=== PATIENT | female | born 1990 | race Caucasian/White ===

== ENCOUNTER 2019-01-09 06:32 | Inpatient (IN) | payer OTHER ==
[2019-01-09] VITALS (16 sets, daily range): BP systolic 93–125; BP diastolic 53–86
[~2019-01-09] VITALS: Ht 165.1 cm; Wt 51.3 kg
[~2019-01-09 06:32] MED LIST: ADDERAL20 MG ORAL; NORCO 5-325 TA1 EACH ORAL; SOMA350 MG PO
[2019-01-09] MEDS ORDERED: Zemuron 50mg/5ml Inj IV ONE (06:35)
[2019-01-09] MEDS ORDERED: LR 1000ml 1,000 ML IVLG SCH (06:51)
[2019-01-09] MEDS ORDERED: Sodium Chloride 10ml vial INJ ONE (06:53)
[2019-01-09] MEDS ORDERED: Lidocaine 1% MPF 10mg/ml 5ml ONE (06:53)
[2019-01-09] MEDS ORDERED: Dexamethasone 4mg/ml vial ONE (06:53)
--- NOTE | 2019-01-09 06:53 | Immediate Post-Op Evaluation ---
Immediate Post-Op Evalulation Immediate Post-Op Evalulation Procedure: L L5-S1 Hemilaminectomy, Microdiscectomy Date of Evaluation: Jan 09, 2019 Time of Evaluation: 09:55 IV Fluids: 500 LR Blood Products: 0 Estimated Blood Loss: 5 Urinary Output: 0 Blood Pressure Systolic: 119 Blood Pressure Diastolic: 82 Pulse Rate: 113 Respiratory Rate: 16 O2 Sat by Pulse Oximetry: 99 Temperature (Fahrenheit): 97.5 Pain Score (1-10): 2 Nausea: No Vomiting: No Complications 0 Patient Status: awake, reacts, patent, extubated, none Hydration Status: adequate Dru Grams Ancef IV Given Within 1 Hr of Incision: Yes Time Given: 08:06 Kosta Fischer MD Jan 09, 2019 06:53
[2019-01-09] MEDS ORDERED: Lidocaine 1% Plain 30 ml INJ ONE (06:54)
[2019-01-09] MEDS ORDERED: oxyCODONE HCL/Acetaminophen 5/325mg ORAL PRN (07:00)
[2019-01-09] MEDS ORDERED: Hydromorphone 0.5mg/0.5ml inj IVP PRN ×2 (07:00→12:15)
[2019-01-09] MEDS ORDERED: HYDROcodone/Acetamin 7.5/325 tab ORAL PRN (07:00)
[2019-01-09] MEDS ORDERED: fentaNYL 100 mcg/2 mL IV PRN (07:00)
[2019-01-09] MEDS ORDERED: Midazolam 2mg/2ml Inj IVP PRN (07:00)
[2019-01-09] MEDS ORDERED: Metoclopramide 10mg/2ml Inj IVP PRN ×2 (07:00→09:45)
[2019-01-09] MEDS ORDERED: DiphenhydrAMINE 50mg/ml Inj IVP PRN (07:00)
[2019-01-09] MEDS ORDERED: Ketorolac 30mg Inj IV PRN ×2 (07:00)
[2019-01-09] MEDS ORDERED: Norco 5mg/325mg tab ORAL PRN (07:00)
[2019-01-09] MEDS ORDERED: Meperidine 50mg/ml Inj(FOR RIGORS ONLY) IVP PRN (07:00)
[2019-01-09] MEDS ORDERED: LORazepam Inj 2mg/ml 1ml IV PRN (07:00)
[2019-01-09] MEDS ORDERED: Acetaminophen (Non formulary) 100 ML IV ONE (07:00)
[2019-01-09] MEDS ORDERED: Atropine Sulfate 0.4mg/ml inj IVP PRN (07:00)
[2019-01-09] MEDS ORDERED: Vancomycin 1gm vial IVPB ONE (07:11)
[2019-01-09] MEDS ORDERED: Thrombin 5000 units TOPIC ONE (07:11)
[2019-01-09] MEDS ORDERED: Gelfoam Size TOPIC ONE (07:11)
[2019-01-09] MEDS ORDERED: Bupivacaine w/Epi 0.5% 30ml Vial INJ ONE (07:12)
[2019-01-09] MEDS ORDERED: Bacitracin 50000 Units Vial ONE (07:12)
--- NOTE | 2019-01-09 07:51 | Anethesia Preoperative Eval ---
Anesthesia Pre-op PMH/ROS General Date of Evaluation: Jan 09, 2019 Time of Evaluation: 07:51 Anesthesiologist: Aaliyah ASA Score: ASA 1 Mallampati Score Class I : Soft palate, uvula, fauces, pillars visible Class II: Soft palate, uvula, fauces visible Class III: Soft palate, base of uvula visible Class IV: Only hard plate visible Mallampati Classification: Class I Surgeon: Jagruti Diagnosis: Back Pain Surgical Procedure: L L5-S1 Hemilaminectomy, Microdiscectomy Anesthesia History: none Family History: no anesthesia problems Allergies: Coded Allergies: No Known Allergies (Unverified , 01/09/19) Medications: see eMAR Patient NPO?: Yes NPO Date: Jan 08, 2019 NPO Time: 2029 Past Medical History PSxH Narrative: Lap cyst Removal Anesthesia Pre-op Phys. Exam Physician Exam Last Vital Signs Date Time Temp Pulse Resp B/P (MAP) Pulse Ox O2 Delivery O2 Flow Rate FiO2 01/09/19 07:22 Room Air 01/09/19 07:01 98.0 61 18 115/76 (89) 100 Constitutional: NAD Neurologic: CN 2-12 intact Cardiovascular: RRR Respiratory: CTA Gastrointestinal: S/NT/ND Airway Exam Mallampati Score: Class I MO: full ROM: full Teeth: intact Anesthesia Pre-op A/P Labs Urine Test Test 01/09/19 06:40 Urine HCG, Qualitative Negative (NEGATIVE) Risk Assessment & Plan Assessment: ASA 1 Plan: GA, SED, GlideScope Go Status Change Before Surgery: No Pre-Antibiotics Dru Grams Ancef IV Given Within 1 Hr of Incision: Yes Time Given: 08:06 Kosta Fischer MD Jan 09, 2019 07:51
[2019-01-09] MEDS ORDERED: Sterile Water Irrig 1000ml IRRIG ONE (08:00)
[2019-01-09] MEDS ORDERED: NS Irrig 1000ml ONE (08:00)
[2019-01-09] MEDS ORDERED: Propofol 1,000mg/ 100ml btl IV ONE (08:00)
[2019-01-09] MEDS ORDERED: LR 1000ml ONE (08:00)
--- NOTE | 2019-01-09 08:14 | Pre-Procedure Note/Attestation ---
Pre-Procedure Note/Attestation Complete Prior to Procedure Procedure Narrative: L L5S1 laminectomy/discectomy Indications for Procedure Pre-Operative Diagnosis: HNP l5S1 Attestation I attest that I discussed the nature of the procedure; its benefits; risks and complications; and alternatives (and the risks and benefits of such alternatives ), prior to the procedure, with the patient (or the patient's legal sales and service representative). I attest that, if there was a reasonable possibility of needing a blood transfusion, the patient (or the patient's legal sales and service representative) was given the [facility] standardized written summary, pursuant to the Leobardo Adonis Blood Safety Act ([place] Health and Safety Code # 1645, as amended). I attest that I re-evaluated the patient just prior to the surgery and that there has been no change in the patient's H&P, except as documented below: Jayden Chand MD Jan 09, 2019 08:14
--- NOTE | 2019-01-09 08:15 | Brief Operative Note ---
Immediate Post Operative Note Operative Note Pre-op Diagnosis: HNP l5S1 Procedure: L l5S1 laminectomy/discectomy Post-op Diagnosis: same as pre-op Findings: consistent w/pre-op dx studies Surgeon: stacey Carpenter Railcar: mayito Anesthesiologist: Demetris Anesthesia: general Specimen: yes Complications: none Condition: stable Fluids: 500 Estimated Blood Loss: none Drains: none Implant(s) used?: No Jayden Chand MD Jan 09, 2019 08:15
[2019-01-09] MEDS ORDERED: Neostigmine 1mg/ml 10ml Inj ONE (08:40)
[2019-01-09] MEDS ORDERED: Glycopyrrolate 0.2mg/ml 1ml Vial ONE (08:40)
[2019-01-09] MEDS ORDERED: Naloxone 0.4mg/ml Inj ONE (09:21)
[2019-01-09] MEDS ORDERED: Milk of Magnesia 30ml Ud ORAL PRN (09:45)
--- NOTE | 2019-01-09 11:40 | NUR ---
NURSE NOTES: Joselin RN brought patient by bed in stable condition. Alert and oriented x4. Complain of mild pain on surgical site and will continue to monitor. Ice pack applied on surgical site. IV dressing intact and dry. No bleeding or swelling on IV site. Belonging checked with patient. Bed lowest position. Call light within reach. Will continue to monitor.
[2019-01-09] MEDS ORDERED: HYDROcodone/Acetamin 10/325 tab ORAL PRN (12:15)
--- NOTE | 2019-01-09 12:15 | NUR ---
NURSE NOTES: Spoke to regarding pain medication. New order received. Order read back and carried out.
--- NOTE | 2019-01-09 12:18 | Diagnostic Imaging Report ---
INDICATION: Pain, intraoperative TECHNIQUE: Intraoperative imaging Fluoroscopy time: 2.2 seconds Total dose: [id number] mGym2 Total number of images: One COMPARISON: None FINDINGS: Surgical tool projects posterior to what is presumably the L5-S1 disc IMPRESSION: Intraoperative imaging, as described
[2019-01-09] MEDS: D5 1/2NS 1,000 ML IV SCH ×2 (12:30→22:13)
--- NOTE | 2019-01-09 12:30 | NUR ---
NURSE NOTES: Patient ambulated to bathroom with assist. No complain of discomfort or dizziness. Patient tolerated activity well. Will continue to monitor.
[2019-01-09] MEDS: HYDROmorphone 1mg/ml Carpuject SUBQ PRN ×2 (12:31→15:33)
--- NOTE | 2019-01-09 12:57 | NUR ---
CASE MANAGEMENT:REVIEW 01/09/19 28 YR OLD FEMALE HERE FOR ELECTIVE SURGERY SI: LUMBAR SPRAIN 98.0 61 18 115/76 100% ON RA IS: TO SURGERY: L5 S1 LAMINECTOMY/DISCECTOMY IV ANCEF Q8 IVF@100/HR IV DILAUDID Q2RHS PRN : TO MED/SURG 3 EAST POST OP INTERQUAL CRITERIA MET
--- NOTE | 2019-01-09 13:48 | NUR ---
REHAB MED PT NOTE CONSULT RECEIVED, JUAN COMPLTED, PATIENT WILL BENEFIT FROM SKILLED PT DURING STAY FOR RETURN TO OF. SPINAL PRECAUTIONS REVIEWED. LOG ROLL SHOWN. WILL CONTINUE TO FOLLOW. RECOMMEND HOME AT LA. PLAN OF CARE INITIATED. TAYLER SANCHEZ PT DPT Addendum: 01/09/19 at 1350 by TAYLER SANCHEZ PT Amended: Links added.
[2019-01-09] MEDS: ceFAZolin sod 1 GM in D5W 55 ML IV SCH ×2 (15:32→23:10)
[2019-01-09] MEDS ORDERED: Dronabinol 2.5mg Cap ORAL SCH (17:00)
--- NOTE | 2019-01-09 17:00 | NUR ---
NURSE NOTES: Patient complained Dilaudid not effective for pain. Notified regarding pain management and new order received. Order read back and carried out.
--- NOTE | 2019-01-09 17:15 | Operative Note - Dictated ---
DATE OF OPERATION: 01/09/2019 SURGEON: Jayden Chand M.D. PREOPERATIVE DIAGNOSIS: Disk herniation, L5-S1 left side with radiculopathy. POSTOPERATIVE DIAGNOSIS: Disk herniation, L5-S1 left side with radiculopathy. PROCEDURE: 1. Left-sided hemilaminectomy and microscopic diskectomy. 2. Partial medial facetectomy, left side. 3. Use of operating microscope. 4. Neurodiagnostic monitoring. 5. Lysis of adhesions adjacent to nerve roots at left L5. ESTIMATED BLOOD LOSS: Minimal. FLUIDS: 500 mL. COMPLICATIONS: None. INDICATIONS: The patient is a very pleasant 28-year-old with approximately 5 or 6 months of back pain with radiation to left lower extremity, this persisted despite extended physical therapy, core strengthening, epidural injections, and other conservative care. Surgical intervention was recommended. RISK NOTE: The patient was explained in detail the risks and benefits of surgery to include, but not be limited to those of bleeding; infection; damage to nerves, vessels, tendons; anesthetic risk, allergic reaction; aspiration; and possibly . The patient understood and wished to proceed. Possible risk for need for spinal fusion was discussed. The patient understood intraoperative findings once incising the disk, fluid consistent with inflammatory tissue exude from the subligamentous region. OPERATIVE PROCEDURE IN DETAIL: The patient was taken to the operative suite. After general endotracheal anesthesia was obtained, she was turned prone onto a radiolucent table with a Pardeep frame. Back was prepped and draped in usual sterile fashion. The needles were placed at what was felt to be the L4-L5 and L5-S1 level and this was radiographically confirmed. At this point, back was prepped and draped in usual sterile fashion. Marcaine with epinephrine was injected at the L5 level. Incision was carried out at L5. Subperiosteal dissection was carried out at left side, L5-S1. Self-retaining retractor was put into place. High-speed drill was then used under microscopic visualization to remove and thin out the lamina of L5 on the left side. Christiano Gonzalez completed the left-sided hemilaminectomy with exposure of the facet joints. Minimal facetectomy was performed. Ligamentum flavum was removed in a piecemeal fashion. S1 nerve root was identified, gently retracted medially. Extensive scarring in this area was noted. The rotund microscopic instruments were then used to perform a lysis of epidural neovascularization and scar tissue formation. Once the adhesions were lifted, the L5-S1 disk on the left was identified. Nerve root retractor was used to reflect the S1 nerve medially. The 15 scalpel was used to incise the disk. Once the disk was incised, clear fluid was expressed, consistent with acute inflammatory markers. At this point, the incision was carried down and down pushing curette was used to debulk the disk herniation. Multiple passes with the straight and angled pituitaries allowed for thorough diskectomy. Copious intradiscal irrigation was performed. Once satisfied with the diskectomy, the neural foramen at L5-S1 was probed and noted to be patent. S1 nerve root was noted to be patent. Copious irrigation once again performed. FloSeal was applied. Decision was made to close. Fascia was repaired using #1 Vicryl, subcutaneous closure using 2-0 Vicryl. Dermabond and sterile dressing was applied. The patient was extubated and transferred to recovery room in stable condition. Jayden Chand M.D. DR: MICHAEL JOB#: [id number] CC:
[2019-01-09] MEDS: Docusate Sod/Senna tab ORAL SCH ×2 (17:35→18:27)
--- NOTE | 2019-01-09 18:06 | Cardiology Progress Note ---
Assessment/Plan Assessment/Plan [id number] ns 250 cc bolus bp not sig different than baseline Objective Last 24 Hour Vital Signs Date Time Temp Pulse Resp B/P (MAP) Pulse Ox O2 Delivery O2 Flow Rate FiO2 01/09/19 16:00 98.6 61 18 93/55 (68) 99 01/09/19 12:45 98.0 84 18 103/75 (84) 99 01/09/19 12:15 98.1 69 18 100/69 (79) 98 01/09/19 11:45 97.5 67 18 100/70 (80) 100 01/09/19 11:05 97.8 69 18 102/76 100 Nasal Cannula 3 01/09/19 10:56 58 18 114/61 100 Nasal Cannula 3 01/09/19 10:50 97.5 01/09/19 10:49 56 18 124/86 100 Nasal Cannula 3 01/09/19 10:41 58 18 124/86 100 Nasal Cannula 3 01/09/19 10:30 62 18 113/74 100 Nasal Cannula 3 01/09/19 10:11 76 18 124/86 100 Nasal Cannula 3 01/09/19 10:00 79 18 125/85 100 Simple Mask 8 01/09/19 09:54 89 18 117/83 100 Simple Mask 8 01/09/19 09:49 86 18 122/84 100 Simple Mask 8 01/09/19 09:44 97.5 113 18 121/76 100 Simple Mask 8 01/09/19 09:42 113 16 99 01/09/19 07:22 Room Air 01/09/19 07:01 98.0 61 18 115/76 (89) 100 Intake and Output 01/08/19 01/09/19 19:00 07:00 # Voids 1 Laboratory Tests Test 01/09/19 06:40 Urine HCG, Qualitative Negative (NEGATIVE) Christopher Beauchamp MD Jan 09, 2019 18:06
[2019-01-09] MEDS ORDERED: NS 250 ML IVPB ONE (18:15)
--- NOTE | 2019-01-09 18:15 | NUR ---
NURSE NOTES: Spoke to regarding blood pressure. New order received. Order read back and carried out.
[2019-01-09] MEDS ORDERED: HYDROmorphone 1mg/ml Carpuject SUBQ PRN (19:32)
[2019-01-09] MEDS ORDERED: HYDROmorphone 1mg/ml Carpuject SUBQ SCH (19:32)
--- NOTE | 2019-01-09 19:45 | NUR ---
HAND-OFF: Report given to Yelena BOYCE. Patient in stable condition.
--- NOTE | 2019-01-09 19:46 | NUR ---
NURSE NOTES: Received report & pt from Jefferson Bethea RN. Pt lying in bed, a&ox4, in room air, family members at bedside. No s/s of acute distress & c/o 8/10 pain. Will give PRN pain med when available & pt verbalized understanding. Dr. Zhang is also here to see pt with new orders for pain meds--to give Dilaudid 1.5mg SubQ @ 2000, Marinol @ 2100, Ativan @ 2200, Dilaudid SubQ or oxycodone @ 2300, Oxycodone or Dilaudid SubQ @ 0000, & after midnight to rotate PRN pain meds (one hour apart). Pt & family member aware of med regimen. Surgical dressing C/D/I. IV site intact with IVF running as ordered. Bed in lowest position, call light within reach. Will continue to monitor.
--- NOTE | 2019-01-09 20:40 | NUR ---
NURSE NOTES: Pt ambulating in hallway with assistance. Steady gait & in no distress.
[2019-01-09] MEDS: Dronabinol 2.5mg Cap ORAL SCH (21:12)
[2019-01-09] MEDS: LORazepam 1mg tab ORAL PRN (22:13)
--- NOTE | 2019-01-09 23:00 | Consultation ---
DATE OF CONSULTATION: 01/09/2019 CARDIOLOGY CONSULTATION CONSULTING PHYSICIAN: Christopher Beauchamp M.D. REFERRING PHYSICIAN: Jayden Chand M.D. REASON FOR REFERRAL: Postoperative medical care. HISTORY OF PRESENT ILLNESS: This is a 28-year-old female, who has undergone back surgery by Dr. Chand. I have been asked to see her in for medical consultation. The patient really does not have much in terms of symptoms except for the fact that she has postoperative pain. She does have some sore throat. On questioning, she is not nauseated and has not been vomiting and she has eaten already some tuna sandwich. She does not have any chest pain or pressure. No PND. No orthopnea. No palpitations. No dizziness or lightheadedness. PAST MEDICAL HISTORY: Positive for basically injury. It also showed that she has had surgery the last year. Since she has had surgery, she has had several cysts removed and laparoscopies in the past few years. SOCIAL HISTORY: She does smoke tobacco and marijuana. No IV drugs. No alcohol use. FAMILY HISTORY: Father . Mother is 50 years old. One sister healthy. There is a family history of diabetes and high blood pressure. ALLERGIES: She has no known drug allergies. REVIEW OF SYSTEMS: GASTROINTESTINAL: No nausea, vomiting, or diarrhea. She is really not having a bowel movement. She has full soft daytime. CONSTITUTIONAL: No fever, chills, or night sweats. PULMONARY: No coughing, wheezing, or shortness of breath. NEUROLOGICAL: She does have numbness and tingling sensation that she seems to have had since prior to surgery in her left leg that is present at this time as well. CARDIAC: No pain, pressure, tightness, heaviness, PND, or orthopnea. PHYSICAL EXAMINATION: GENERAL: Shows to be a young female, in no respiratory distress. NECK: Supple. No jugular venous distention. LUNGS: Appear to be clear to auscultation and percussion. CARDIAC: S1 is normal. S2 is normal. Regular rate and rhythm. No heaves or thrills noted. ABDOMEN: Soft and nontender. Positive bowel sounds. EXTREMITIES: She has pneumatic compression stockings in place. Good pulses. There is no edema distally. LABORATORY VALUES AND IMAGING DATA: Her beta-hCG was negative in hospital. However, her labs, INR 1.1. Sodium 137, potassium 3.7, chloride 106, bicarb 25, BUN of 9, creatinine 0.8, and glucose of 83. Liver function tests are normal. White count 5.2, hemoglobin 12.5, and platelet count of 186,000. CPK of 58. Phosphorus of 2.1. Magnesium 1.8. Iron level of 118. TSH of 1.1. Free T4 and T3 were all normal. Cortisol of 8.35. The patient has hs-CRP of 0.24. Sed rate of 4. She did have chest x-rays, which showed normal sinus rhythm, normal QRS axis, really no significant ST-T wave abnormalities. ASSESSMENT: 1. Lumbar sprain and strain with disk desiccation. 2. Hypotension. 3. Tobacco use disorder. 4. Paresthesias in left leg. PLAN: This patient was seen in cardiac consultation. The patient appears to be doing relatively well. Her blood pressure most recently checked, 92/55. She runs in the low 100s, so not significantly different than her baseline. She is afebrile. She has already eaten. She has had DVT prophylaxis with the use of pneumatic compression stockings and early ambulation as possible per recommendations of Ortho. Incentive spirometer discussed with the patient and the patient will be followed in the hospital. Once she is able to walk and move around and be able to eat and have adequate bowel movements, she will be discharged home. Her blood pressure being mildly lower than baseline, so problem with normal suck consequence. So, if she needs, IV fluids can be administered to help with that. She would not get her Adderall while she is in the hospital. Stool softeners were recommended for the patient to be continuing. Christopher Beauchamp M.D. DR: BRANDON JOB#: [id number] CC:
[2019-01-09] MEDS: oxyCODONE 5mg IR tab ORAL PRN (23:10)
--- NOTE | 2019-01-09 23:15 | Consultation ---
DATE OF CONSULTATION: 01/09/2019 CONSULTING PHYSICIAN: Clifford Zhang M.D. REFERRING PHYSICIAN: aJyden Chand M.D. REASON FOR CONSULTATION: Acute pain consult. HISTORY OF PRESENT ILLNESS: Thank you kindly for consulting me to evaluate and render an opinion as to how to proceed in the management of the patient's acute postoperative lumbar spine pain after a lumbar spine surgery today. The patient is a 28-year-old woman, who injured her lumbar spine in a work-related injury. She underwent lumbar spine decompressive surgery today, and complained of excruciating postoperative pain. She was trialed on multiple doses of high dose Dilaudid, but still stated that her pain control was inadequate. You consulted me to help with her pain control. I saw the patient at the bedside with her boyfriend. I discussed the case with the hospital pharmacist along with the nursing team to devise the following analgesic plan. PAST MEDICAL HISTORY: 1. Acute postoperative lumbar spine pain, status post lumbar spine surgery by in December 2018. 2. Work-related injury. 3. Active tobacco usage. 4. History of endometriosis. 5. Attention deficit hyperactivity disorder. 6. Chronic elbow pain. PAST SURGICAL HISTORY: Gynecological surgery in 2008, 2009, and 2011. MEDICATIONS AT HOME: [place], [place], NSAIDs, and Adderall. ALLERGIES: No known drug allergies. FAMILY HISTORY: Diabetes and hypertension. SOCIAL HISTORY: The patient is accompanied at the bedside by her boyfriend. She actively smokes tobacco. She smokes medical marijuana every night for pain control. REVIEW OF SYSTEMS: Per Dr. Janes Martínez. PHYSICAL EXAMINATION: VITAL SIGNS: Age 28. Height 5 feet 5 inches and weight 114 pounds. Body mass index 19. VITAL SIGNS: Pain level 9/10 on the visual analog pain scale. Afebrile, pulse 61, respirations 18, blood pressure 103/75, and oxygen saturation 99% on room air. HEENT: Normocephalic and atraumatic. Eye glasses. No Paula's palsy. No Laureen syndrome. Extraocular muscles intact. CHEST: Clear to auscultation. BACK: Lumbar spines shows a dry dressing. Painful by incision area with minimal paraspinal muscle spasms appreciated. EXTREMITIES: Moving all extremities x4 with 5/5 dorsiflexion and 5/5 plantar flexion in bilateral lower extremities. NEUROLOGIC: Detailed neurologic exam per Dr. Chand. BREASTS/GENITOURINARY: Deferred. LABORATORY AND DIAGNOSTIC DATA: Laboratory studies from December 2018, PTT 31, INR 1.1, glucose 83, sodium 137, potassium 3.7, chloride 106, bicarb 25, BUN 9, and creatinine 0.9. Total protein 6.7. Albumin 4.2. AST 14 and ALT 10. Total bilirubin 0.5. White count 5, hematocrit 35, and platelets 186,000. A 12-lead EKG normal on 01/08/2019. Pulmonary function testing on 01/06/2019 normal. MRI of the lumbar spine dated September 2018, L5-S1 with a 5 mm left paracentral and left lateral disc protrusion. IMPRESSION: 1. Acute postoperative lumbar spine pain, status post lumbar spine surgery by in December 2018. 2. Work-related injury. 3. Active tobacco usage. 4. History of endometriosis. 5. Attention deficit hyperactivity disorder. 6. Chronic elbow pain. TREATMENT RECOMMENDATIONS: I will apply the nicotine patch to help with the nicotine withdrawal agitation, which is exacerbating her pain complaints. Because she does smoke medical marijuana each night for pain control, I have placed her on q.12 hours dosing of oral Marinol to help for better baseline analgesia. She does state that she has used Xanax and Ativan in the past for anxiolysis. I have ordered Ativan 1 mg orally every 4 hours p.r.n. as an antispasm and antianxiety agent. The patient states that with her history of endometriosis and previous gynecological surgeries, she has tolerated Percocet in the past. I believe oxycodone is a more potent agent in this case. I will discontinue previous orders for [place]. I also have discontinued previous any other muscle relaxants to simplify her analgesic plan. I recommend using breakthrough doses of Dilaudid. I have increased the dose to 1.5 mg subcutaneously every three hours pain for severe breakthrough pain. I would alternate this with oxycodone instant release 15 mg orally every three hours p.r.n. for moderate pain along with the p.r.n. Ativan in combination with the scheduled Marinol. Hopefully, this combination will moderate her pain complaints. I have instructed the nursing and pharmacy teams to wait at least 60 minutes between any doses of narcotics or sedating agent, to avoid respiratory depression. I have ordered incentive spirometer to encourage good pulmonary toilet. I will place the patient on GI ulcer prophylaxis with b.i.d. Pepcid, along with a p.r.n. dose of Mylanta in case of any GERD symptom exacerbation. I have ordered Zofran and Phenergan as a rescue antiemetic. I have ordered Benadryl 25 mg orally q.6 hours in case of any itching complaints. Clifford Zhang M.D. DR: BECKY JOB#: [id number] CC:
[2019-01-10] VITALS (10 sets, daily range): BP systolic 81–101; BP diastolic 44–68
[2019-01-10] MEDS: LORazepam 1mg tab ORAL PRN ×2 (03:42→17:42)
--- NOTE | 2019-01-10 04:05 | NUR ---
NURSE NOTES: Pt's BP decreased. Checked BP 3 times. 1st: 75/37, 2nd:75/37, & 3rd: 81/45. Called Dr. Beauchamp regarding decreased BP & got a new order for NS Bolus 250cc @ 100ml/hr. Charge nurse Edilson also aware. Will continue to monitor pt's BP.
[2019-01-10] MEDS ORDERED: NS 250 ML IVPB ONE (04:15)
--- NOTE | 2019-01-10 06:30 | NUR ---
NURSE NOTES: BP rechecked 90/49, HR 81.
--- NOTE | 2019-01-10 07:06 | 48 Hour Post Anesthesia Eval ---
Post Anesthesia Evaluation Procedure: L L5-S1 Hemilaminectomy, Microdiscectomy Date of Evaluation: Jan 10, 2019 Time of Evaluation: 06:31 Blood Pressure Systolic: 90 0: 41 Pulse Rate: 80 Respiratory Rate: 17 Temperature (Fahrenheit): 98.1 O2 Sat by Pulse Oximetry: 97 Airway: patent Nausea: No Vomiting: No Pain Intensity: 2 Hydration Status: adequate Cardiopulmonary Status: Stable Mental Status/LOC: patient returned to baseline Follow-up Care/Observations: 0 Post-Anesthesia Complications: 0 Follow-up care needed: N/A Kosta Fischer MD Jan 10, 2019 07:06
--- NOTE | 2019-01-10 07:30 | NUR ---
HAND-OFF: Report given to CARLI Montes. Called Dr. Zhang regarding pt's current BP 90/49 & pt's pain level at 9/10 & asking for pain med that's due. Dr. Zhang recommended to give roxicodone despite pt's current BP with no parameters given. Per MD, "Don't be concerned about the BP. Just give the neeta". Endorsed to AM shift & AM charge nurse Sudheere also aware.
--- NOTE | 2019-01-10 08:00 | NUR ---
NURSE NOTES: Received report from Yelena BOYCE. During rounds patient is awake alert and oriented, no acute distress noted. Dressing assessed c/d/i. Patient is reporting pain 9/10 in back. Placed iced and repositioned for comfort, will medicate as ordered. Per report from Yelena BOYCE, Dr. Zhang is aware of patient's blood pressure running low but stated ok to give roxicodone. Patient reports that she became lightheaded this morning and almost fell while leaving bathroom. ANTHONY Villela was present and reports that patient became lightheaded and she assisted her back to bed. Fall precautions implemented. Side rails upx3, bed low and locked, call light in reach, bed alarm armed. Patient educated to call for assistance before getting OOB. Will continue to monitor.
[2019-01-10] MEDS: ceFAZolin sod 1 GM in D5W 55 ML IV SCH (08:05)
--- NOTE | 2019-01-10 08:25 | NUR ---
NURSE NOTES: Called Dr. Beauchamp and reported to MD that patient's BP is 81/44. MD ordered to assess orthostatic VS and call back when done. Will assess per order and report back to MD.
--- NOTE | 2019-01-10 08:38 | NUR ---
NURSE NOTES: Assessed orthostatic VS. Called Dr. Beauchamp and reported patient's orthostatic VS to MD. MD reports ok to give patient her pain medication roxicodone. No further orders given. Will continue to monitor.
[2019-01-10] MEDS: D5 1/2NS 1,000 ML IV SCH (08:43)
[2019-01-10] MEDS: oxyCODONE 5mg IR tab ORAL PRN ×4 (08:44→19:25)
[2019-01-10] MEDS: Dronabinol 2.5mg Cap ORAL SCH ×2 (09:46→21:16)
[2019-01-10] MEDS: Docusate Sod/Senna tab ORAL SCH ×2 (09:47→17:42)
--- NOTE | 2019-01-10 12:03 | NUR ---
CASE MANAGEMENT:REVIEW 01/10/19 SI: POD #1 S/P HEMILAMINECTOMY AND MICROSCOPIC DISKECTOMY 98.0 75 18 93/61 99% ON RA IS: PEPCID PO BID MARINOL PO Q12 ATIVAN PO Q4HRS NORCO PO Q3HRS PRN IVF@100/HR : MED/SURG STATUS 3 EAST DCP: FROM HOME PLAN: PAIN MGMT DISCHARGE HOME WHEN CLEARED BY DR MACE
--- NOTE | 2019-01-10 15:32 | NUR ---
NURSE NOTES: Patient reported pain at right wrist IV insertion site. No signs of infiltration. Patient requested that IV be removed. Removed right wrist IV intact, inserted new IV into left AC. LAC IV patent and asymptomatic. Will continue to monitor.
--- NOTE | 2019-01-10 18:09 | Orthopedic Spine Progress Note ---
Ortho Spine - Progress Note Subjective Symptoms: c/o post-op back pain, improved - as compared to pre-op Objective Vital Signs: Last 24 Hour Vital Signs Date Time Temp Pulse Resp B/P (MAP) Pulse Ox O2 Delivery O2 Flow Rate FiO2 01/10/19 16:00 98.0 65 18 101/55 (70) 95 01/10/19 12:00 98.6 66 18 98/54 (69) 99 01/10/19 09:00 Room Air Room Air 01/10/19 08:30 90 93/61 (72) 01/10/19 08:29 79 95/61 (72) 01/10/19 08:28 69 93/57 (69) 01/10/19 08:00 98.0 75 18 81/44 (56) 99 01/10/19 07:06 80 17 97 01/10/19 06:30 80 90/49 (63) 01/10/19 04:00 98.1 55 17 84/49 (61) 97 01/10/19 00:00 98.0 55 18 99/68 (78) 97 01/09/19 21:00 Room Air Room Air 01/09/19 20:00 98.4 70 19 104/53 (70) 98 I&O: Intake and Output 01/09/19 01/10/19 18:59 06:59 Intake Total 1000 ml 1560 ml Output Total 5 ml Balance 995 ml 1560 ml Intake Oral 500 ml 360 ml IV Total 500 ml 1200 ml Output Estimated Blood Loss 5 ml # Voids 4 3 Wound: dry Drains: none Neuro Status: normal Assessment Procedure Performed: L l5S1 laminectomy/discectomy Plan Plan: PT, pain management, discharge plan - probably in Jayden Onofre MD Jan 10, 2019 18:09
--- NOTE | 2019-01-10 19:00 | Progress Note ---
DATE: 01/10/2019 ACUTE PAIN MANAGEMENT PHYSICIAN PROGRESS NOTE MEDICATIONS: Medication administration record reviewed. Medications include Tylenol, Mylanta, Benadryl, Marinol, Pepcid, Dilaudid, Ativan, milk of magnesia, NicoDerm patch, Zofran, oxycodone, Phenergan, and Berkley-Colace. LABORATORY STUDIES: No interval laboratory studies. VITAL SIGNS: Pain level 7/10 on the visual analog pain scale. Afebrile, pulse 65, respirations 18, blood pressure 101/55, and oxygen saturation 95% on room air. I saw the patient at bedside with the surgeon, Dr. Chand and with the patient's boyfriend. The patient has had several episodes of relative hypotension with one episode of lightheadedness earlier this morning. She has been tolerating the oral oxycodone pills at 50 mg dose with good efficacy. She remains on scheduled Marinol, but has been using less of the breakthrough Dilaudid injections. I will continue the Marinol q.12 h. for baseline analgesia. The patient did state that the patient's nicotine patch seemed to be helpful and I will ask the pharmacist to continue this medication. I also did recreational counselor the patient to stop smoking. Nausea symptoms have resolved. With her lightheadedness episodes, I will place her on normal saline 100 mL an hour around the clock for better intravascular rehydration. She should continue with p.r.n. Ativan as needed for spasm and anxiety. The patient already picked up prescriptions for Ativan and Percocet, which I left for outpatient usage. The lumbar spine wound was examined by Dr. Chand and myself. The dressing appeared clean and dry. Our target will be for the patient to discharge home within next 24 hours. Clifford Zhang M.D. DR: EILEEN JOB#: [id number] CC:
--- NOTE | 2019-01-10 19:15 | NUR ---
HAND-OFF: Report given to Lea BOYCE. Patient is in stable condition.
--- NOTE | 2019-01-10 19:27 | NUR ---
NURSE NOTES: When I went to place new nicotine patch on patient, she reported to me that she removed the old patch and placed it on the bedside table. I did not see a nicotine patch on the bedside table, patient reported to me that she does not know what happened to it. Called pharmacist Tyrell and reported that old nicotine patch has not been properly disposed of because it is missing. Pharmacist is aware. Educated patient that if nicotine patch comes off or she removes the patch, inform RN right away. Endorsed this information to nightshift nurse.
--- NOTE | 2019-01-10 20:07 | Cardiology Progress Note ---
Assessment/Plan Assessment/Plan 1. Lumbar sprain and strain with disk desiccation. 2. Hypotension. 3. Tobacco use disorder. 4. Paresthesias in left leg ivf boluses given but not orthostatic later in the after noon encouraged to drink will keep on ivf over nite i did not examine dressing has been done by dr robb and dr ewing overall looks ok dvt ppx IS use d/w pt ambulate as allowed by ortho Subjective Cardiovascular: Reports: lightheadedness - some ; Denies: chest pain Respiratory: Denies: shortness of breath Gastrointestinal/Abdominal: Denies: abdominal pain Genitourinary: Denies: burning Subjective pain mod controlled has walked inhalls laready eating some Objective Last 24 Hour Vital Signs Date Time Temp Pulse Resp B/P (MAP) Pulse Ox O2 Delivery O2 Flow Rate FiO2 01/10/19 16:00 98.0 65 18 101/55 (70) 95 01/10/19 12:00 98.6 66 18 98/54 (69) 99 01/10/19 09:00 Room Air Room Air 01/10/19 08:30 90 93/61 (72) 01/10/19 08:29 79 95/61 (72) 01/10/19 08:28 69 93/57 (69) 01/10/19 08:00 98.0 75 18 81/44 (56) 99 01/10/19 07:06 80 17 97 01/10/19 06:30 80 90/49 (63) 01/10/19 04:00 98.1 55 17 84/49 (61) 97 01/10/19 00:00 98.0 55 18 99/68 (78) 97 01/09/19 21:00 Room Air Room Air General Appearance: no apparent distress, alert Neck: supple Cardiovascular: normal rate, regular rhythm Respiratory/Chest: lungs clear, normal breath sounds Abdomen: normal bowel sounds, non tender, soft Extremities: no swelling - penumoatic stockings inplace Intake and Output 01/09/19 01/10/19 18:59 06:59 Intake Total 1000 ml 1560 ml Output Total 5 ml Balance 995 ml 1560 ml Intake Oral 500 ml 360 ml IV Total 500 ml 1200 ml Output Estimated Blood Loss 5 ml # Voids 4 3 Christopher Beauchamp MD Jan 10, 2019 20:07
--- NOTE | 2019-01-10 20:59 | NUR ---
NURSE NOTES: Received report from CARLI Montes. Patient is aaox4. VSS, no shortness of breath. PRN Roxicodone given for pain of 8/10 lower back. Dressing clean/dry/intact. IV fluids running. Ambulated to restroom with assistance, no dizziness noted. Bed lowest position, call light within reach.
[2019-01-11] VITALS: BP 100/52
[2019-01-11] MEDS: oxyCODONE 5mg IR tab ORAL PRN ×3 (00:39→08:13)
[2019-01-11 04:00] VITALS: BP 87/48
[2019-01-11 05:00] VITALS: BP 97/53
--- NOTE | 2019-01-11 05:31 | NUR ---
NURSE NOTES: Assisted to bathroom. On the way back to bed patient states she felt dizzy. Assisted back into bed. Call light within reach. Instructed to call if she needs to get out of bed.
[2019-01-11] MEDS: Dronabinol 2.5mg Cap ORAL SCH ×2 (06:04→06:05)
--- NOTE | 2019-01-11 06:45 | Progress Note ---
DATE: 01/11/2019 ACUTE PAIN MANAGEMENT PHYSICIAN PROGRESS NOTE Vital signs within normal limits. Afebrile, pulse 84, respirations 18, blood pressure 97/53, and oxygen saturation 97% on room air. LABORATORY STUDIES: No interval laboratory studies. MEDICATIONS: Medication administration record reviewed. Medications include IV fluids normal saline at 150 mL an hour, Berkley-Colace, Pepcid, Marinol, and nicotine patch. PRN medications include Tylenol, milk of magnesia, Dilaudid, Zofran, Benadryl, Mylanta, Ativan, oxycodone, and Phenergan. I saw the patient at the bedside. I discussed the case with the nurse RN, Priscilla along with surgeon, Dr. Jayden Chand. With the intravenous fluids overnight, there were no further episodes of lightheadedness or orthostatic dizziness. The patient has been moving in and out of bed to the restroom without difficulties. Nicotine patch was reapplied after I spoke with the hospital pharmacist, Tyrell. The patient seems to be less anxious without her nicotine-withdrawal agitation exacerbating her pain complaints. She continues to use the breakthrough oral oxycodone doses with good efficacy. She has used Ativan intermittently, but has not required the breakthrough Dilaudid injections. The patient was already able to have a lime burner pickle water pump operator the Percocet and Ativan pills for outpatient usage. I will continue the intravenous fluids until the patient discharges to home, which should occur later today. She is afebrile and I see no contraindication for discharge trial home at this time. Clifford Zhang M.D. DR: MUSA JOB#: [id number] CC:
[2019-01-11] MEDS ORDERED: ATIVAN1 MG ORAL (07:44)
[2019-01-11] MEDS ORDERED: PERCOCET 10-321 EACH ORAL (07:45)
--- NOTE | 2019-01-11 07:46 | NUR ---
NURSE NOTES: PT AXOX4, CALM, RESTING IN BED. PT STATES SHE HAD 2 EPISODES OF DIZZINESS AND SAW "SPOTS". PT IS RESTING IN BED IN PRONE POSITION. IN NO APPARENT DISTRESS AT THIS TIME. OPENS EYES SPONTANEOUSLY AND ABLE TO FOLLOW COMMANDS. CALL LIGHT WITHIN REACH. WILL CONTINUE TO MONITOR.
--- NOTE | 2019-01-11 07:48 | NUR ---
HAND-OFF: Report given to CARLI Marquez. Patient stable.
[2019-01-11 07:59] VITALS: BP 110/69
[2019-01-11] MEDS: Docusate Sod/Senna tab ORAL SCH (08:14)
--- NOTE | 2019-01-11 09:00 | Orthopedic Spine Progress Note ---
Ortho Spine - Progress Note Subjective Symptoms: c/o post-op neck pain, improved - as compared to pre-op Objective Vital Signs: Last 24 Hour Vital Signs Date Time Temp Pulse Resp B/P (MAP) Pulse Ox O2 Delivery O2 Flow Rate FiO2 01/11/19 07:59 97.6 103 18 110/69 (83) 99 01/11/19 05:00 97/53 (68) 01/11/19 04:00 99.0 84 18 87/48 (61) 97 01/11/19 00:00 98.5 69 18 100/52 (68) 100 01/10/19 21:00 Room Air Room Air 01/10/19 20:00 98.6 68 18 100/56 (71) 100 01/10/19 16:00 98.0 65 18 101/55 (70) 95 01/10/19 12:00 98.6 66 18 98/54 (69) 99 I&O: Intake and Output 01/10/19 01/11/19 19:00 07:00 Intake Total 2800 ml 1500 ml Balance 2800 ml 1500 ml Intake Oral 1500 ml IV Total 1300 ml 1500 ml # Voids 5 4 Wound: intact Drains: none Neuro Status: normal Assessment Procedure Performed: L l5S1 laminectomy/discectomy Plan Plan: PT, discharge to home Jayden Chand MD Jan 11, 2019 09:00
--- NOTE | 2019-01-11 09:24 | NUR ---
NURSE NOTES: DR BACA AT BEDSIDE. MADE AWARE OR EPISODES OF DIZZINESS AND SEEING SPOTS. DR WITH NO NEW ORDERS AND OK TO DISCHARGE. PT TO BE DISCHARGED WITH PRESCRIPTIONS FROM DR MACE, PER DR BACA. COPIES OF PRESCRIPTION FROM DR MACE NOTED IN CHART. PT STATES SHE HAS ALREADY RECEIVED THE PRESCRIPTIONS AND HAD THEM FILLED. PT EDUCATED ON FALL/SAFETY PRECAUTIONS AND VERBALIZED UNDERSTANDING. DRESSING ON LOWER BACK DRY AND INTACT. CALL LIGHT WITHIN REACH. WILL CONTINUE TO MONITOR.
[2019-01-11 12:00] VITALS: BP 86/52
[2019-01-11 12:30] VITALS: BP 99/61
[2019-01-11] MEDS ORDERED: NS 275ml ONE (12:39)
[2019-01-11] MEDS ORDERED: D5 1/2NS 1000ml IV ONE (12:39)
--- NOTE | 2019-01-11 12:48 | NUR ---
CASE MANAGEMENT:REVIEW 01/11/19 SI: POD #2 S/P HEMILAMINECTOMY AND MICROSCOPIC DISKECTOMY 99.4 86 18 86/52 99% ON RA IS: PEPCID PO BID MARINOL PO Q12 ATIVAN PO Q4HRS NORCO PO Q3HRS PRN IVF@150/HR : MED/SURG STATUS 3 EAST DCP: FROM HOME PLAN: PAIN MGMT DISCHARGE HOME WHEN CLEARED BY DR MACE
--- NOTE | 2019-01-11 13:15 | NUR ---
NURSE NOTES: BP WAS RE-ASSESSED BEFORE DISCHARGE. BP 99/61 AND PULSE 82. IN NO APPARENT DISTRESS. PT HAS CAREGIVER WHO WILL DRIVE HER HOME. PT EDUCATED ON CARE OF SURGICAL DRESSING AND TO MAKE FOLLOW UP APPOINTMENT WITH DR BACA TO SCHEDULE APPOINTMENT. PT VERBALIZED UNDERSTANDING. PT EDUCATED ON DISCHARGE MEDICATIONS AND DISCHARGE PACKET. EDUCATED ON S/S OF INFECTION. PT VERBALIZED UNDERSTANDING. IV ACCESS DISCONTINUED. BELONGINGS CHECKED AT BEDSIDE. PT VERBALIZES ALL BELONGINGS ARE ACCOUNTED. PT WAS DISCHARGED IN STABLE CONDITION.
--- NOTE | 2019-01-12 10:06 | Discharge Summary ---
Discharge Summary Discharge Summary _ DATE OF ADMISSION: 01/09/2019 DATE OF DISCHARGE: 01/11/2019 DISCHARGED BY: Dr. Jayden Chand SURGEON: Dr. Jayden Chand CUTTING AND SPLICING SUPERVISOR: Dr. Clifford Beauchamp BRIEF HOSPITAL COURSE: Patient is a 28-year-old female, who suffered back pain for approximately 5-6 months with radiation to the left lower extremity. Symptoms persisted despite extended physical therapy, core strengthening, epidural injections and other conservative care. She was diagnosed with disc herniation, L5-S1, left side with radiculopathy. Surgical intervention was recommended. She was admitted on 01/09/2019 and underwent left sided L5-S1 hemilaminectomy and microscopic discectomy; partial medial facetectomy left side. She tolerated procedure well. Surgery was uneventful. Post-operatively, patient was admitted for post-op care. She was placed on SCDs for DVT prophylaxis and was encouraged use of incentive spirometer. She was followed by director of enrollment and painter and decorator. Patient was given pain management. She was placed on Marinol every 12 hours. She was given Ativan for antianxiety and antispasm. She was given GI prophylaxis. She was seen by PT. Diet was advanced. She had episodes of hypotension and lightheadedness. She was given IV hydration. Blood pressure eventually improved. Patient was not orthostatic. Incision was clean, dry and intact. Patient was ambulating well with good pain control and was tolerating diet. Patient was eventually cleared for discharge home. PREOPERATIVE DIAGNOSIS: Disk herniation, L5-S1 left side with radiculopathy. POSTOPERATIVE DIAGNOSIS: Disk herniation, L5-S1 left side with radiculopathy. PROCEDURE: 1. Left-sided hemilaminectomy and microscopic diskectomy. 2. Partial medial facetectomy, left side. 3. Use of operating microscope. 4. Neurodiagnostic monitoring. 5. Lysis of adhesions adjacent to nerve roots at left L5. (Refer to Operative Report) DISCHARGE DISPOSITION: Patient was discharged home. DISCHARGE MEDICATIONS: Refer to Medication Reconciliation Sheet. DISCHARGE INSTRUCTIONS: Post-op instructions given. Follow-up in a week. I have been assigned to complete a DC summary on this account, I was not involved with the patient's management. Sravanthi Kong NP Jan 12, 2019 10:06
== END 2019-01-11 12:40 | disposition home or self-care (01) | DRG 520 ==
LOC: SDSOVERFLO 06:32 → 3E 11:35
PROC: 01NB0ZZ Release Lumbar Nerve, Open Approach (ICD-10-PCS; principal; 2019-01-09 07:45)
PROC: 0SB40ZZ Excision of Lumbosacral Disc, Open Approach (ICD-10-PCS; principal; 2019-01-09 07:45)
DX: M51.17 Intervertebral disc disorders with radiculopathy, lumbosacral region (principal); I95.9 Hypotension, unspecified; F17.200 Nicotine dependence, unspecified, uncomplicated; F90.9 Attention-deficit hyperactivity disorder, unspecified type; R20.2 Paresthesia of skin; G89.18 Other acute postprocedural pain; G89.29 Other chronic pain; M25.529 Pain in unspecified elbow; G96.12 Meningeal adhesions (cerebral) (spinal)
CPT/HCPCS: 36415; 72020; 76000; 81025; 86850; 86900; 86901; 87081; 94003; 94150; C9399; J2405; J2710